=== PATIENT | male | born 1980 | race Caucasian/White ===

== ENCOUNTER → 2016-07-21 | Day surgery (SDC) | payer OTHER ==
[~2016-07-21] MED LIST: ALLEGRA ALLERG180 MG PO; IBUPROFEN PO; LORTAB 5/500 TA1 TA2 PO; PRILOSEC; ULTRAM PO; ZOFRAN ODT4 MG/UDTAB SL
--- NOTE | ~2016-07-21 | OR ---
Unit #: [id number] #: [id number] Patient: ELISHA OSORIO [id number] [address] [place], [place] [address] [id number] O MR#: [id number] NAME: ELISHA OSORIO ROOM: Date of Procedure: 07/21/2016 Admission Date: 07/21/2016 Surgeon: Marlo Goodwin M.D. : 1980 Attending Physician: Marlo Goodwin M.D. Primary Care Physician: Jazmín Squires M.D. OPERATIVE REPORT PROCEDURE PERFORMED Esophagogastroduodenoscopy with biopsies. INDICATIONS FOR PROCEDURE The patient with recurrent vomiting, heartburn, atypical chest pain, undergoing evaluation with upper endoscopy. He has been on PPIs. MEDICATIONS Monitored anesthesia. POSTOPERATIVE FINDINGS 1. Mild esophagitis involving distal esophagus. 2. Small hiatal hernia. 3. Gastritis, biopsies taken. 4. 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 Biopsies taken to look for dysplasia. PLAN Continue PPI therapy and reflux precautions. Follow up on pathology report. DESCRIPTION OF PROCEDURE The patient was explained of the procedure, risks, and benefits along with risks and benefits of anesthesia. He was brought to the endoscopy room. Propofol anesthesia was given. Bite block was placed. The scope was passed down the mouth into the esophagus, stomach, duodenum, and distal duodenum. Findings as described. Biopsies taken. Gently, I pulled the scope out of the patient's mouth. He tolerated it well. Dictated by... Dameon Blunt/eun TD: 07/22/2016 02:15 JOB #: [id number] Unit #: [id number] #: [id number] Patient: ELISHA OSORIO OPERATIVE REPORT X Marlo Goodwin MD X PROCEDURE OPERATIVE NOTE
--- NOTE | ~2016-07-21 | EKG ---
PATIENT: ELISHA OSORIO UNIT #: [id number] Ventricular Rate: 79 BPM Atrial Rate: 79 BPM P-R Interval: 162 ms QRS Duration: 90 ms Q-T Interval: 392 ms QTC Calculation(Bezet): 449 ms P [place]: 50 degrees Calculated R [place]: 40 degrees Calculated T [place]: 52 degrees Diagnosis Line: Normal sinus rhythm Diagnosis Line: Normal ECG Diagnosis Line: No previous ECGs available Diagnosis Line: Confirmed by MAGALY ARRINGTON MD ([id number]) on Diagnosis Line: 07/21/2016 11:28:31 AM INTERPRETING MD: NURY SALAS
== END | disposition home or self-care (01) ==
LOC: COPS 06:35
DX: K29.50 Unspecified chronic gastritis without bleeding (principal); K21.0 Gastro-esophageal reflux disease with esophagitis; K44.9 Diaphragmatic hernia without obstruction or gangrene; Z87.442 Personal history of urinary calculi; Z98.890 Other specified postprocedural states
CPT/HCPCS: 88305; 88312; 93005

== ENCOUNTER → 2016-09-16 | Outpatient (CLI) | payer OTHER ==
--- NOTE | ~2016-09-16 | US6 ---
[facility] A Service of [facility] & [facility] RADIOLOGY TEXT RESULTS PATIENT: ELISHA OSORIO LOCATION: [facility] : [birth year] UNIT #: [id number] AGE: [address]: Marlo Goodwin MD SEX: M ORDER DR: [id number] [facility] [address] [place], [place] [address] [id number] O MR#: [id number] Acc #: [id number] NAME: ELISHA OSORIO : 1980 SEX: M STUDY DATE/TIME: 09/16/2016 9:13 UNIT: [facility] ROOM: STUDY DESCRIPTION: US Abdominal Limited Attending Physician: Marlo Goodwin M.D. Referring Physician: Marlo Goodwin M.D. Ordering Physician: Marlo Goodwin M.D. Primary Care Physician: Jazmín Squires M.D. MEDICAL IMAGING REPORT This report is preliminary unless electronic signature is present EXAM Gallbladder ultrasound, 09/16/2016. HISTORY Nausea and vomiting for 2 years. Symptoms worsening in the last 12 months. FINDINGS The liver demonstrates an increase in echotexture with attenuation of the ultrasound beam characteristic of fatty infiltration. No cystic or solid mass lesions were seen in the liver. The intra and extrahepatic bile ducts are not dilated. The gallbladder is normal with no evidence of cholelithiasis, wall thickening or pericholecystic fluid. The common duct measures 4 mm. The pancreas and right kidney are normal. IMPRESSION Fatty infiltration of the liver. Otherwise negative gallbladder ultrasound. Dictated by... Tito Moran M.D. THIS IS AN ELECTRONICALLY VERIFIED REPORT Tito Moran M.D. at 09/17/2016 8:11 AM JORI/mike TD: 09/16/2016 11:19 JOB #: [id number] MEDICAL IMAGING REPORT Page 1 of 1 COPY
== END | disposition home or self-care (01) ==
LOC: CGUS 08:33
DX: R11.2 Nausea with vomiting, unspecified (principal); K76.0 Fatty (change of) liver, not elsewhere classified
CPT/HCPCS: 76705

== ENCOUNTER 2016-10-07 08:52 | Emergency (ER) | payer OTHER ==
--- NOTE | ~2016-10-07 | CT2 ---
[facility] A Service of [facility] & [facility] RADIOLOGY TEXT RESULTS PATIENT: ELISHA OSORIO LOCATION: [facility] : [birth year] UNIT #: [id number] AGE: [address]: Nicolasa De Los Santos APRN SEX: M ORDER DR: [id number] [facility] [address] [place], [place] [address] [id number] MR#: [id number] Acc #: [id number] NAME: ELISHA OSORIO : 1980 SEX: M STUDY DATE/TIME: 10/07/2016 12:08 UNIT: [facility] ROOM: STUDY DESCRIPTION: CT Abd and Pelv W Cont Attending Physician: Nicolasa De Los Santos A.P.R.N. Ordering Physician: Ed Chris Brown M.D. Primary Care Physician: Jazmín Squires M.D. MEDICAL IMAGING REPORT This report is preliminary unless electronic signature is present EXAM CT of the abdomen and pelvis HISTORY Umbilical pain since 04:00 p.m. 10/06/2016. Prior history of kidney stones. TECHNIQUE This CT exam was performed with one or more of the following radiation dose reduction techniques: automatic control, adjustment of mA and/or kV according to patient size, and iterative reconstruction. FINDINGS CT of the abdomen and pelvis performed with intravenous administration of 100 mL Isovue-370. Comparison to noncontrast enhanced examination dated 10/19/2015. Enteric contrast also administered for today's study. The lung bases show dependent atelectasis. Inferior heart and pericardium unremarkable. Liver appears somewhat low in overall density. This is a nonspecific finding on contrast-enhanced examination but could be a reflection of some degree of fatty infiltration of liver. No suspicious focal hepatic parenchymal abnormality. The gallbladder, spleen, pancreas, adrenal glands notable only for calcified splenic granuloma. Nonobstructing left upper renal pole calculus unchanged. Nonobstructing right upper pole renal calculus unchanged. No hydronephrosis, hydroureter, ureteral calculus or perinephric/periureteral inflammatory change. CT PELVIS: No inguinal adenopathy. There are prostatic calcifications. Urinary bladder unremarkable. No pelvic or retroperitoneal adenopathy. Distal esophagus, stomach, small bowel normal. Appendix normal. Colon unremarkable. Vascular structures unremarkable. No acute-appearing bony abnormality. [facility] A Service of [facility] RADIOLOGY TEXT RESULTS PATIENT: ELISHA OSORIO LOCATION: [facility] : 82 UNIT #: [id number] AGE: [address]: Nicolasa De Los Santos VENEER LATHE OPERATOR SEX: M ORDER DR: IMPRESSION 1. No clearly acute abnormality is seen in the abdomen or pelvis. 2. Nonobstructing tiny bilateral upper pole renal calculi unchanged from October 2015. No acute renal findings. 3. Gallbladder, pancreas, appendix normal. Remainder of alimentary canal unremarkable. 4. Appearance of liver raises possibility of mild generalized fatty infiltration. No focal suspicious hepatic parenchymal abnormality. Dictated by... Luan Jessica M.D. THIS IS AN ELECTRONICALLY VERIFIED REPORT Luan Jessica M.D. at 10/09/2016 10:28 PM AKASH/shyann TD: 10/07/2016 15:47 JOB #: [id number] MEDICAL IMAGING REPORT Page 1 of 1 COPY
[2016-10-07 10:36] LABS: BASOPHIL# 0.1 X10e3 (0-0.3); BASOPHIL% 0.8 % (0-2.5); EOSINOPHIL# 0.2 X10e3 (0-0.7); EOSINOPHIL% 2.9 % (0.0-7.0); HEMATOCRIT 45.5 % (38.0-50.0); HEMOGLOBIN 15.4 gm/dL (13.0-16.0); LYMPHOCYTE# 2.5 X10e3 (1.0-3.5); LYMPHOCYTE% 33.6 % (17.0-45.0); MEAN CELL VOLUME 88.6 FL (83-96); MEAN CORPUSCULAR HEMOGLOBIN 29.9 PG (28-34); MEAN CORPUSCULAR HGB CONC 33.8 g/dL (30-36); MEAN PLATELET VOLUME 9.1 FL (6.5-11.5); MONOCYTE# 0.6 X10e3 (0-1.0); MONOCYTE% 7.6 % (3.0-12.0); NEUTROPHIL# 4.1 X10e3 (1.5-7.1); NEUTROPHIL% 55.1 % (40-75); PLATELET COUNT 215 X10e3 (140-420); RED BLOOD COUNT 5.13 X10e (3.90-5.60); RED CELL DISTRIBUTION WIDTH 12.9 % (11.0-15.5); WHITE BLOOD COUNT 7.4 X10e3 (4.0-10.5)
[2016-10-07 10:37] LABS: DIFF IND NO
[2016-10-07 10:59] LABS: ALBUMIN SERUM 3.9 g/dL (3.5-5.0); BILIRUBIN, DIRECT 0.1 mg/dL (0.0-0.2); BILIRUBIN,INDIRECT 0.6 mg/dL (0.0-0.9); BILIRUBIN,TOTAL 0.7 mg/dL (0.2-2.0); BUN/CREATININE RATIO 13.63; CREATININE SERUM 1.1 mg/dL (0.6-1.4); GLOM FILT RATE Estimated 87.1 mL/min (>60); POTASSIUM 4.2 mmol/L (3.5-5.1); PROTEIN TOTAL SERUM 6.7 g/dL (6.0-8.3)
[2016-10-07 11:41] LABS: URINE SOURCE CLEAN CATCH
[2016-10-07 11:52] LABS: URINE APPEARANCE CLEAR; URINE BILIRUBIN NEG (NEG); URINE BLOOD NEG (NEG); URINE COLOR YELLOW; URINE GLUCOSE NEG (NEG); URINE KETONE NEG (NEG); URINE LEUKOCYTE ESTERASE NEG (NEG); URINE NITRATE NEG (NEG); URINE PH 7.5 (5-8); URINE PROTEIN NEG (NEG); URINE SPECIFIC GRAVITY 1.015 (1.003-1.035); URINE UROBILINOGEN 0.2 MG/DL (NEG)
[2016-10-07 11:55] LABS: CULTURE INDICATED? NO
== END 2016-10-07 13:48 | disposition home or self-care (01) ==
LOC: CED 08:52
PROVIDERS: Nurse Practitioner
DX: R10.31 Right lower quadrant pain (principal); Z87.442 Personal history of urinary calculi
CPT/HCPCS: 36415; 74177; 80048; 80076; 81003; 82150; 83690; 85025; 96361; 96374; 96375; 99284; J2270; J2405; Q9967